=== PATIENT | female | born 1975 | race Caucasian/White ===

== ENCOUNTER → 2017-08-03 | Outpatient (CLI) | payer SELFPAY ==
[2017-08-03 16:43] LABS: AMPHETAMINES/METAMPHETAMINES NEGATIVE ng/mL (<1000)
[2017-08-12 20:38] LABS: Opiates Negative (Cutoff=100)
== END ==
LOC: LAB 15:21
PROVIDERS: Emergency Medicine
DX: Z79.899 Other long term (current) drug therapy (principal)

== ENCOUNTER → 2017-10-01 | Outpatient (CLI) | payer OTHER ==
[~2017-10-01] MED LIST: ALEVE220 MG PO; DELESTROGEN20 MG/ML IM; DILAUDID4 MG PO; FLEXERIL10 MG PO; MELOXICAM15 MG PO; OXYCODONE 5MG TA5 MG PO; PERCOCET 10 MG1 EACH PO; PERCOCET 325 MG1 TA4 PO
[2017-10-01 15:38] LABS: AMPHETAMINES/METAMPHETAMINES NEGATIVE ng/mL (<1000)
== END ==
LOC: LAB 15:07
PROVIDERS: Emergency Medicine
DX: Z79.899 Other long term (current) drug therapy (principal)